=== PATIENT | male | born 1970 | race African-American/Black ===

== ENCOUNTER 2019-12-10 14:52 | Inpatient (IN) | payer MEDICAID ==
[~2019-12-10] VITALS: Ht 170.2 cm; Wt 83.5 kg
[2019-12-10 16:01] LABS: BASOPHILS % 0.7 % (0.0-2.0); EOSINOPHILS % 1.2 % (0.0-5.0); HEMATOCRIT. 28.3 % (42.0-52.0); HEMOGLOBIN. 9.3 g/dL (14.0-18.0); LYMPHOCYTES % 11.6 % (20.0-50.0); MEAN CORPUSCULAR HEMOGLOBIN 26.9 pg (28.0-32.0); MEAN CORPUSCULAR VOLUME 82.1 fL (80.0-94.0); MEAN PLATELET VOLUME 9.2 fl (7.4-10.4); MONOCYTES % 10.2 % (2.0-8.0); NEUTROPHILS % 76.3 % (40.0-76.0); PLATELET 496 x1000/uL (130-400); RED BLOOD CELL COUNT 3.44 mill/uL (4.7-6.1); RED CELL DISTRIBUTION WIDTH 14.7 % (11.6-14.6)
[2019-12-10 16:06] LABS: CHLORIDE 98 mEq/L (98-107)
[2019-12-10 17:56] LABS: INR 1.5; PROTHROMBIN TIME 15.3 sec (9.6-11.0)
[2019-12-10] MEDS ORDERED: PIPERACILLIN/TAZ 3.375G PREMIX 50 ML IV NR (19:00)
[2019-12-10] MEDS ORDERED: VANCOMYCIN 1 G PREMIX 200 ML IV NR (19:00)
[2019-12-10] MEDS ORDERED: DEXTROSE 50% WATER 50ML SYRINGE IV PRN (19:45)
[2019-12-10] MEDS ORDERED: ACETAMINOPHEN 325MG TABLET PO PRN (19:45)
[2019-12-10] MEDS ORDERED: ONDANSETRON HCL 4MG/2ML INJ IV PRN (19:45)
[2019-12-10 20:46] LABS: CLARITY URINE CLEAR (CLEAR); COLOR URINE YELLOW (YELLOW); KETONES URINE TRACE (NEGATIVE); LEUKOCYTE ESTERASE URINE NEGATIVE (NEGATIVE); NITRITE URINE NEGATIVE (NEGATIVE); OCCULT BLOOD URINE NEGATIVE (NEGATIVE); PROTEIN URINE TRACE (NEGATIVE); SPECIFIC GRAVITY URINE 1.015 (1.005-1.030); UROBILINOGEN URINE 0.2 E.U./dL (0.2-1.0)
[2019-12-10 20:58] LABS: *AMPHETAMINES SCREEN URINE NEGATIVE (NEGATIVE); *BARBITURATES SCREEN URINE NEGATIVE (NEGATIVE)
[2019-12-10 20:59] LABS: *BENZODIAZEPINES SCREEN URINE NEGATIVE (NEGATIVE); *COCAINE SCREEN URINE NEGATIVE (NEGATIVE); CANNABINOID URINE SCREEN NEGATIVE (NEGATIVE); METHADONE URINE SCREEN NEGATIVE (NEGATIVE); OPIATES URINE SCREEN PRESUMTIVE POSITIVE (NEGATIVE); PHENCYCLIDINE URINE SCREEN NEGATIVE (NEGATIVE)
[2019-12-10] MEDS: BLOOD SUGAR DIAGNOSTIC STRIP TEST SCH (21:00)
[2019-12-10] MEDS: INSULIN LISPRO 100 UNITS/ML SUBCUT SCH (21:00)
[2019-12-10 21:50] VITALS: BP 147/91
[2019-12-10 22:00] VITALS: BP 147/91
[2019-12-11] VITALS: BP 144/88
[2019-12-11] MEDS: PIPERACILLIN/TAZOBACTAM 3.375 G in DEXT 5% WATER 100 ML IV SCH ×3 (01:01→11:35)
[2019-12-11] MEDS ORDERED: VANCOMYCIN 1250MG in DEXTROSE 5% WATER 250ML IV SCH (03:00)
[2019-12-11 04:00] VITALS: BP 133/81
[2019-12-11] MEDS: INSULIN LISPRO 100 UNITS/ML SUBCUT SCH ×4 (07:40→21:00)
[2019-12-11] MEDS: BLOOD SUGAR DIAGNOSTIC STRIP TEST SCH ×4 (07:40→21:27)
[2019-12-11 08:00] VITALS: BP 129/79
[2019-12-11 12:00] VITALS: BP 143/88
[2019-12-11] MEDS: VANCOMYCIN 1 G PREMIX 200 ML IV SCH ×2 (15:43→22:13)
[2019-12-11 16:00] VITALS: BP 141/90
[2019-12-11] MEDS ORDERED: DEXT 5%/0.45% NACL 1000ML 1,000 ML IV ONE (18:30)
[2019-12-11 20:00] VITALS: BP 149/88
[2019-12-12] VITALS (9 sets, daily range): BP systolic 121–161; BP diastolic 58–95
[2019-12-12] MEDS: PIPERACILLIN/TAZOBACTAM 3.375 G in DEXT 5% WATER 100 ML IV SCH ×5 (00:01→23:36)
[2019-12-12 04:19] LABS: BASOPHILS % 0.8 % (0.0-2.0); EOSINOPHILS % 2.4 % (0.0-5.0); HEMATOCRIT. 23.3 % (42.0-52.0); HEMOGLOBIN. 7.7 g/dL (14.0-18.0); LYMPHOCYTES % 15.2 % (20.0-50.0); MEAN CORPUSCULAR HEMOGLOBIN 26.9 pg (28.0-32.0); MEAN CORPUSCULAR VOLUME 80.8 fL (80.0-94.0); MEAN PLATELET VOLUME 8.1 fl (7.4-10.4); MONOCYTES % 12.2 % (2.0-8.0); NEUTROPHILS % 69.4 % (40.0-76.0); PLATELET 411 x1000/uL (130-400); RED BLOOD CELL COUNT 2.88 mill/uL (4.7-6.1); RED CELL DISTRIBUTION WIDTH 14.5 % (11.6-14.6)
[2019-12-12 04:23] LABS: CHLORIDE 100 mEq/L (98-107)
[2019-12-12 04:50] LABS: VANCOMYCIN TROUGH 20.1 ug/mL (5.0-10.0)
[2019-12-12] MEDS: VANCOMYCIN 1 G PREMIX 200 ML IV SCH ×2 (06:34→18:00)
[2019-12-12] MEDS: BLOOD SUGAR DIAGNOSTIC STRIP TEST SCH ×4 (06:35→21:15)
[2019-12-12] MEDS: INSULIN LISPRO 100 UNITS/ML SUBCUT SCH ×4 (07:26→21:00)
[2019-12-12] MEDS ORDERED: POTASSIUM CHLORIDE INJ 40 MEQ in DEXT 5% WATER 250 ML IV NR (10:00)
[2019-12-12] MEDS ORDERED: CLONIDINE 0.1MG TABLET PO PRN (13:45)
[2019-12-12] MEDS ORDERED: BACITRACIN 50,000 UNITS/VIAL ONE ×2 (15:52→16:40)
[2019-12-12] MEDS ORDERED: HYDROMORPHONE HCL/PF 2MG/ML (OR) ONE (16:30)
[2019-12-12] MEDS ORDERED: VANCOMYCIN HCL 500 MG/VIAL ONE (17:25)
[2019-12-12] MEDS ORDERED: NALOXONE HCL 0.4 MG/ML 1ML VIAL ONE (17:54)
[2019-12-12 23:02] LABS: HEMATOCRIT 27.6 % (42.0-52.0); MEAN CORPUSCULAR HEMOGLOBIN 27.3 pg (28.0-32.0); MEAN CORPUSCULAR VOLUME 83.4 fL (80.0-94.0); PLATELET 403 x1000/uL (130-400); RED BLOOD CELL COUNT 3.31 mill/uL (4.7-6.1); RED CELL DISTRIBUTION WIDTH 14.8 % (11.6-14.6)
[2019-12-12] MEDS: MORPHINE SULFATE 2 MG/ML CPJ (NOT FOR IM USE) IV PRN (23:50)
[2019-12-13] VITALS (7 sets, daily range): BP systolic 139–149; BP diastolic 82–92
[2019-12-13] MEDS: HYDROCODONE/ACETAMINOPHEN 10/325MG TABLET PO PRN ×2 (02:35→08:58)
[2019-12-13] MEDS: PIPERACILLIN/TAZOBACTAM 3.375 G in DEXT 5% WATER 100 ML IV SCH ×4 (06:05→23:44)
[2019-12-13] MEDS: VANCOMYCIN 1 G PREMIX 200 ML IV SCH ×2 (06:10→17:45)
[2019-12-13] MEDS: MORPHINE SULFATE 2 MG/ML CPJ (NOT FOR IM USE) IV PRN ×2 (06:11→15:36)
[2019-12-13] MEDS: BLOOD SUGAR DIAGNOSTIC STRIP TEST SCH ×4 (06:19→20:22)
[2019-12-13 08:08] LABS: BASOPHILS % 0.8 % (0.0-2.0); EOSINOPHILS % 1.4 % (0.0-5.0); HEMOGLOBIN. 8.3 g/dL (14.0-18.0); LYMPHOCYTES % 11.3 % (20.0-50.0); MEAN CORPUSCULAR HEMOGLOBIN 27.8 pg (28.0-32.0); MEAN CORPUSCULAR VOLUME 83.5 fL (80.0-94.0); MEAN PLATELET VOLUME 8.4 fl (7.4-10.4); MONOCYTES % 10.2 % (2.0-8.0); NEUTROPHILS % 76.3 % (40.0-76.0); PLATELET 401 x1000/uL (130-400); RED BLOOD CELL COUNT 2.99 mill/uL (4.7-6.1); RED CELL DISTRIBUTION WIDTH 14.6 % (11.6-14.6)
[2019-12-13 08:26] LABS: CHLORIDE 100 mEq/L (98-107)
[2019-12-13] MEDS: INSULIN LISPRO 100 UNITS/ML SUBCUT SCH ×4 (08:59→20:31)
[2019-12-14] MEDS ORDERED: CLINDAMYCIN 900 MG IV SCH (03:00)
[2019-12-14 04:00] VITALS: BP 143/84
[2019-12-14] MEDS ORDERED: IBUP-2029 MT (05:46)
[2019-12-14] MEDS ORDERED: METR-167 PO (05:46)
[2019-12-14] MEDS ORDERED: DOXY100C2 MT (05:46)
[2019-12-14 06:16] LABS: BASOPHILS % 0.7 % (0.0-2.0); EOSINOPHILS % 2.1 % (0.0-5.0); HEMATOCRIT. 24.3 % (42.0-52.0); LYMPHOCYTES % 16.8 % (20.0-50.0); MEAN CORPUSCULAR HEMOGLOBIN 27.3 pg (28.0-32.0); MEAN CORPUSCULAR VOLUME 82.6 fL (80.0-94.0); MEAN PLATELET VOLUME 8.4 fl (7.4-10.4); MONOCYTES % 14.4 % (2.0-8.0); PLATELET 384 x1000/uL (130-400); RED BLOOD CELL COUNT 2.94 mill/uL (4.7-6.1); RED CELL DISTRIBUTION WIDTH 14.7 % (11.6-14.6)
[2019-12-14 06:24] LABS: CHLORIDE 100 mEq/L (98-107)
[2019-12-14 06:34] LABS: VANCOMYCIN TROUGH 9.2 ug/mL (5.0-10.0)
[2019-12-14] MEDS: PIPERACILLIN/TAZOBACTAM 3.375 G in DEXT 5% WATER 100 ML IV SCH ×3 (06:37→17:45)
[2019-12-14] MEDS: BLOOD SUGAR DIAGNOSTIC STRIP TEST SCH ×4 (07:15→21:43)
[2019-12-14] MEDS: INSULIN LISPRO 100 UNITS/ML SUBCUT SCH ×4 (07:15→21:00)
[2019-12-14] MEDS: VANCOMYCIN 1 G PREMIX 200 ML IV SCH (07:26)
[2019-12-14 08:00] VITALS: BP 140/82
[2019-12-14] MEDS: MORPHINE SULFATE 2 MG/ML CPJ (NOT FOR IM USE) IV PRN (09:34)
[2019-12-14] MEDS ORDERED: MORPHINE SULFATE 2 MG/ML CPJ (NOT FOR IM USE) IV SCH (10:15)
[2019-12-14 12:00] VITALS: BP 141/88
[2019-12-14] MEDS ORDERED: BUPIVACAINE HCL/PF 0.25% (2.5MG/ML) 10ML INFIL NR (12:00)
[2019-12-14] MEDS ORDERED: LIDOCAINE HCL 1% 20ML VIAL (Pyxis) INJ INFIL NR (12:00)
[2019-12-14] MEDS: HYDROMORPHONE HCL/PF 2MG/ML CPJ IV PRN (13:03)
[2019-12-14] MEDS ORDERED: MORPHINE SULFATE 4 MG/ML CPJ (NOT FOR IM USE) IV PRN (15:00)
[2019-12-14] MEDS: CLINDAMYCIN 900 MG in DEXTROSE 5% WATER 50 ML IV SCH ×2 (15:37→21:49)
[2019-12-14 16:00] VITALS: BP 118/82
[2019-12-14] MEDS: VANCOMYCIN 1500MG in DEXTROSE 5% WATER 250ML IV SCH (18:42)
[2019-12-14 19:00] VITALS: BP 132/82
[2019-12-15] VITALS: BP 144/69
[2019-12-15] MEDS: PIPERACILLIN/TAZOBACTAM 3.375 G in DEXT 5% WATER 100 ML IV SCH ×5 (00:13→23:35)
[2019-12-15 04:00] VITALS: BP 144/76
[2019-12-15] MEDS: VANCOMYCIN 1500MG in DEXTROSE 5% WATER 250ML IV SCH ×3 (06:00→18:25)
[2019-12-15] MEDS: CLINDAMYCIN 900 MG in DEXTROSE 5% WATER 50 ML IV SCH ×3 (06:41→21:49)
[2019-12-15 07:06] LABS: BASOPHILS % 0.9 % (0.0-2.0); HEMATOCRIT. 25.8 % (42.0-52.0); HEMOGLOBIN. 8.6 g/dL (14.0-18.0); LYMPHOCYTES % 17.7 % (20.0-50.0); MEAN CORPUSCULAR HEMOGLOBIN 27.5 pg (28.0-32.0); MEAN CORPUSCULAR VOLUME 82.8 fL (80.0-94.0); MEAN PLATELET VOLUME 8.1 fl (7.4-10.4); MONOCYTES % 13.4 % (2.0-8.0); PLATELET 443 x1000/uL (130-400); RED BLOOD CELL COUNT 3.12 mill/uL (4.7-6.1)
[2019-12-15] MEDS: BLOOD SUGAR DIAGNOSTIC STRIP TEST SCH ×4 (07:20→21:17)
[2019-12-15 07:38] LABS: CHLORIDE 101 mEq/L (98-107)
[2019-12-15] MEDS: INSULIN LISPRO 100 UNITS/ML SUBCUT SCH ×4 (07:50→21:00)
[2019-12-15 08:00] VITALS: BP 141/91
[2019-12-15] MEDS: HYDROMORPHONE HCL/PF 2MG/ML CPJ IV PRN (10:39)
[2019-12-15 12:00] VITALS: BP 125/82
[2019-12-15 16:00] VITALS: BP 124/74
[2019-12-15 20:00] VITALS: BP 125/70
[2019-12-16] VITALS (8 sets, daily range): BP systolic 119–149; BP diastolic 65–90
[2019-12-16 06:15] LABS: EOSINOPHILS % 3.6 % (0.0-5.0); HEMATOCRIT. 28.4 % (42.0-52.0); HEMOGLOBIN. 9.2 g/dL (14.0-18.0); LYMPHOCYTES % 19.4 % (20.0-50.0); MEAN CORPUSCULAR HEMOGLOBIN 27.1 pg (28.0-32.0); MEAN CORPUSCULAR VOLUME 83.3 fL (80.0-94.0); MEAN PLATELET VOLUME 8.3 fl (7.4-10.4); MONOCYTES % 14.9 % (2.0-8.0); NEUTROPHILS % 61.1 % (40.0-76.0); PLATELET 451 x1000/uL (130-400); RED BLOOD CELL COUNT 3.42 mill/uL (4.7-6.1); RED CELL DISTRIBUTION WIDTH 15.1 % (11.6-14.6)
[2019-12-16] MEDS: CLINDAMYCIN 900 MG in DEXTROSE 5% WATER 50 ML IV SCH ×3 (06:38→22:33)
[2019-12-16 06:46] LABS: CHLORIDE 102 mEq/L (98-107); VANCOMYCIN TROUGH 25.4 ug/mL (5.0-10.0)
[2019-12-16] MEDS: BLOOD SUGAR DIAGNOSTIC STRIP TEST SCH ×3 (07:45→21:00)
[2019-12-16] MEDS: PIPERACILLIN/TAZOBACTAM 3.375 G in DEXT 5% WATER 100 ML IV SCH ×3 (07:45→20:13)
[2019-12-16] MEDS: INSULIN LISPRO 100 UNITS/ML SUBCUT SCH ×3 (07:50→20:37)
[2019-12-16] MEDS: VANCOMYCIN 1500MG in DEXTROSE 5% WATER 250ML IV SCH (08:42)
[2019-12-16] MEDS: VANCOMYCIN 1250MG in DEXTROSE 5% WATER 250ML IV SCH (22:09)
[2019-12-17] VITALS: BP 131/79
[2019-12-17] MEDS: PIPERACILLIN/TAZOBACTAM 3.375 G in DEXT 5% WATER 100 ML IV SCH ×4 (00:23→18:42)
[2019-12-17 04:00] VITALS: BP 132/85
[2019-12-17] MEDS: CLINDAMYCIN 900 MG in DEXTROSE 5% WATER 50 ML IV SCH (06:04)
[2019-12-17 06:32] LABS: HEMATOCRIT. 28.3 % (42.0-52.0); HEMOGLOBIN. 9.3 g/dL (14.0-18.0); MEAN CORPUSCULAR HEMOGLOBIN 27.4 pg (28.0-32.0); MEAN CORPUSCULAR VOLUME 83.2 fL (80.0-94.0); MEAN PLATELET VOLUME 8.1 fl (7.4-10.4); PLATELET 476 x1000/uL (130-400); RED CELL DISTRIBUTION WIDTH 15.4 % (11.6-14.6)
[2019-12-17 06:50] LABS: CHLORIDE 107 mEq/L (98-107)
[2019-12-17] MEDS: BLOOD SUGAR DIAGNOSTIC STRIP TEST SCH ×4 (06:54→21:38)
[2019-12-17] MEDS: INSULIN LISPRO 100 UNITS/ML SUBCUT SCH ×4 (07:42→21:00)
[2019-12-17 08:33] VITALS: BP 137/88
[2019-12-17] MEDS: VANCOMYCIN 1250MG in DEXTROSE 5% WATER 250ML IV SCH (09:45)
[2019-12-17 12:00] VITALS: BP 149/69
[2019-12-17 14:41] LABS: PLATELET ESTIMATE INCREASED
[2019-12-17 20:00] VITALS: BP 130/78
[2019-12-17] MEDS: CLINDAMYCIN 900 MG PREMIX 50 ML IV SCH (21:14)
[2019-12-18] VITALS: BP 138/91
[2019-12-18 04:00] VITALS: BP 138/87
[2019-12-18] MEDS: PIPERACILLIN/TAZOBACTAM 3.375 G in DEXT 5% WATER 100 ML IV SCH ×5 (05:25→17:35)
[2019-12-18] MEDS ORDERED: VANCOMYCIN 750 MG PREMIX 150 ML IV SCH (06:00)
[2019-12-18] MEDS: CLINDAMYCIN 900 MG PREMIX 50 ML IV SCH ×3 (06:33→22:49)
[2019-12-18] MEDS: BLOOD SUGAR DIAGNOSTIC STRIP TEST SCH ×4 (06:38→21:00)
[2019-12-18 06:39] LABS: BASOPHILS % 0.9 % (0.0-2.0); EOSINOPHILS % 4.9 % (0.0-5.0); HEMATOCRIT. 28.7 % (42.0-52.0); HEMOGLOBIN. 9.4 g/dL (14.0-18.0); LYMPHOCYTES % 19.5 % (20.0-50.0); MEAN CORPUSCULAR HEMOGLOBIN 27.3 pg (28.0-32.0); MEAN CORPUSCULAR VOLUME 83.8 fL (80.0-94.0); MEAN PLATELET VOLUME 8.1 fl (7.4-10.4); MONOCYTES % 14.2 % (2.0-8.0); NEUTROPHILS % 60.5 % (40.0-76.0); PLATELET 527 x1000/uL (130-400); RED BLOOD CELL COUNT 3.43 mill/uL (4.7-6.1); RED CELL DISTRIBUTION WIDTH 15.3 % (11.6-14.6)
[2019-12-18 07:23] LABS: CHLORIDE 107 mEq/L (98-107)
[2019-12-18] MEDS: INSULIN LISPRO 100 UNITS/ML SUBCUT SCH ×4 (07:50→21:00)
[2019-12-18 08:00] VITALS: BP 139/88
[2019-12-18] MEDS: HYDROMORPHONE HCL/PF 2MG/ML CPJ IV PRN (11:40)
[2019-12-18 12:00] VITALS: BP 158/97
[2019-12-18 16:00] VITALS: BP 140/96
[2019-12-18 20:00] VITALS: BP 142/89
[2019-12-18] MEDS ORDERED: AMOX1TAB16 MT (23:38)
[2019-12-18] MEDS ORDERED: DOXY100C2 MT (23:38)
[2019-12-19] VITALS: BP 138/89
[2019-12-19] MEDS: PIPERACILLIN/TAZOBACTAM 3.375 G in DEXT 5% WATER 100 ML IV SCH ×4 (03:40→17:47)
[2019-12-19 04:00] VITALS: BP 127/69
[2019-12-19] MEDS: CLINDAMYCIN 900 MG PREMIX 50 ML IV SCH ×2 (05:43→13:48)
[2019-12-19] MEDS: VANCOMYCIN 1 G PREMIX 200 ML IV SCH (05:43)
[2019-12-19 05:52] LABS: CHLORIDE 105 mEq/L (98-107)
[2019-12-19 06:13] LABS: BASOPHILS % 0.8 % (0.0-2.0); EOSINOPHILS % 5.3 % (0.0-5.0); HEMATOCRIT. 30.2 % (42.0-52.0); HEMOGLOBIN. 9.9 g/dL (14.0-18.0); LYMPHOCYTES % 18.5 % (20.0-50.0); MEAN CORPUSCULAR HEMOGLOBIN 27.2 pg (28.0-32.0); MEAN CORPUSCULAR VOLUME 83.3 fL (80.0-94.0); MEAN PLATELET VOLUME 8.1 fl (7.4-10.4); MONOCYTES % 13.4 % (2.0-8.0); PLATELET 544 x1000/uL (130-400); RED BLOOD CELL COUNT 3.63 mill/uL (4.7-6.1); RED CELL DISTRIBUTION WIDTH 15.7 % (11.6-14.6)
[2019-12-19] MEDS: INSULIN LISPRO 100 UNITS/ML SUBCUT SCH ×4 (06:35→21:00)
[2019-12-19] MEDS: BLOOD SUGAR DIAGNOSTIC STRIP TEST SCH ×4 (06:35→21:00)
[2019-12-19 08:00] VITALS: BP 141/88
[2019-12-19 12:00] VITALS: BP 151/93
[2019-12-19 16:00] VITALS: BP 140/89
[2019-12-19 20:00] VITALS: BP 126/72
[2019-12-20] VITALS: BP 131/76
[2019-12-20] MEDS: PIPERACILLIN/TAZOBACTAM 3.375 G in DEXT 5% WATER 100 ML IV SCH ×2 (00:56→06:10)
[2019-12-20] MEDS: VANCOMYCIN 1 G PREMIX 200 ML IV SCH (00:56)
[2019-12-20 04:00] VITALS: BP 124/78
[2019-12-20] MEDS: INSULIN LISPRO 100 UNITS/ML SUBCUT SCH ×4 (06:32→21:00)
[2019-12-20] MEDS: BLOOD SUGAR DIAGNOSTIC STRIP TEST SCH ×4 (06:32→21:05)
[2019-12-20 07:08] LABS: CHLORIDE 103 mEq/L (98-107)
[2019-12-20 08:00] VITALS: BP 137/96
[2019-12-20] MEDS: AMOXICILLIN/POTASSIUM CLAVULANATE 875/125MG TAB PO SCH ×2 (10:39→21:05)
[2019-12-20] MEDS: DOXYCYCLINE HYCLATE 100MG CAPSULE PO SCH ×2 (10:39→21:05)
[2019-12-20] MEDS ORDERED: POTASSIUM CHLORIDE 20MEQ/PACKET PO SCH (10:45)
[2019-12-20 12:00] VITALS: BP 157/94
[2019-12-20 16:02] VITALS: BP 157/97
[2019-12-21] MEDS: BLOOD SUGAR DIAGNOSTIC STRIP TEST SCH ×4 (07:20→21:00)
[2019-12-21] MEDS: INSULIN LISPRO 100 UNITS/ML SUBCUT SCH ×4 (07:20→21:00)
[2019-12-21 07:27] LABS: BASOPHILS % 1.1 % (0.0-2.0); EOSINOPHILS % 4.2 % (0.0-5.0); HEMATOCRIT. 30.6 % (42.0-52.0); LYMPHOCYTES % 20.2 % (20.0-50.0); MEAN CORPUSCULAR HEMOGLOBIN 27.1 pg (28.0-32.0); MEAN CORPUSCULAR VOLUME 82.9 fL (80.0-94.0); MEAN PLATELET VOLUME 8.1 fl (7.4-10.4); MONOCYTES % 12.7 % (2.0-8.0); NEUTROPHILS % 61.8 % (40.0-76.0); PLATELET 544 x1000/uL (130-400); RED BLOOD CELL COUNT 3.69 mill/uL (4.7-6.1); RED CELL DISTRIBUTION WIDTH 16.1 % (11.6-14.6)
[2019-12-21 07:46] LABS: CHLORIDE 107 mEq/L (98-107)
[2019-12-21 08:00] VITALS: BP 144/92
[2019-12-21] MEDS: AMOXICILLIN/POTASSIUM CLAVULANATE 875/125MG TAB PO SCH ×2 (09:29→23:06)
[2019-12-21] MEDS: DOXYCYCLINE HYCLATE 100MG CAPSULE PO SCH ×2 (09:29→23:06)
[2019-12-21 12:00] VITALS: BP 121/70
[2019-12-21 16:00] VITALS: BP 141/90
[2019-12-21 20:00] VITALS: BP 120/82
[2019-12-22] VITALS: BP 126/77
[2019-12-22 04:00] VITALS: BP 118/82
[2019-12-22] MEDS: BLOOD SUGAR DIAGNOSTIC STRIP TEST SCH ×4 (07:20→20:58)
[2019-12-22] MEDS: INSULIN LISPRO 100 UNITS/ML SUBCUT SCH ×4 (07:50→20:58)
[2019-12-22 08:00] VITALS: BP 116/72
[2019-12-22] MEDS: AMOXICILLIN/POTASSIUM CLAVULANATE 875/125MG TAB PO SCH ×2 (10:12→21:13)
[2019-12-22] MEDS: DOXYCYCLINE HYCLATE 100MG CAPSULE PO SCH ×2 (10:12→21:13)
[2019-12-22] MEDS ORDERED: HYDROMORPHONE HCL/PF 2MG/ML CPJ IV SCH (10:30)
[2019-12-22 12:00] VITALS: BP 93/59
[2019-12-22] MEDS ORDERED: METF-414 PO (15:43)
[2019-12-22 16:00] VITALS: BP 128/83
[2019-12-22 20:00] VITALS: BP 135/87
[2019-12-23] VITALS: BP 121/78
[2019-12-23 04:00] VITALS: BP 125/87
[2019-12-23] MEDS: BLOOD SUGAR DIAGNOSTIC STRIP TEST SCH ×4 (06:22→21:26)
[2019-12-23] MEDS: INSULIN LISPRO 100 UNITS/ML SUBCUT SCH ×4 (07:50→21:00)
[2019-12-23 08:00] VITALS: BP 123/77
[2019-12-23] MEDS: DOXYCYCLINE HYCLATE 100MG CAPSULE PO SCH ×2 (10:32→21:26)
[2019-12-23] MEDS: AMOXICILLIN/POTASSIUM CLAVULANATE 875/125MG TAB PO SCH ×2 (10:32→21:26)
[2019-12-23 12:00] VITALS: BP 118/79
[2019-12-23 16:00] VITALS: BP 135/83
[2019-12-23 20:00] VITALS: BP 130/84
[2019-12-24] VITALS: BP 125/80
[2019-12-24 04:00] VITALS: BP 140/87
[2019-12-24] MEDS: BLOOD SUGAR DIAGNOSTIC STRIP TEST SCH ×4 (07:31→21:00)
[2019-12-24] MEDS: INSULIN LISPRO 100 UNITS/ML SUBCUT SCH ×4 (07:50→21:00)
[2019-12-24] MEDS: AMOXICILLIN/POTASSIUM CLAVULANATE 875/125MG TAB PO SCH ×2 (09:55→22:48)
[2019-12-24] MEDS: DOXYCYCLINE HYCLATE 100MG CAPSULE PO SCH ×2 (09:55→22:49)
[2019-12-24] MEDS: ZINC SULFATE 220 MG ( 50 ) CAPSULE PO SCH (09:55)
[2019-12-24] MEDS: ASCORBIC ACID 500 MG TABLET PO SCH (09:56)
[2019-12-24 10:23] VITALS: BP 140/93
[2019-12-24 12:00] VITALS: BP 138/92
[2019-12-24 16:00] VITALS: BP 135/84
[2019-12-24 20:00] VITALS: BP 109/69
[2019-12-25] VITALS: BP 119/82
[2019-12-25 04:00] VITALS: BP 120/85
[2019-12-25] MEDS: BLOOD SUGAR DIAGNOSTIC STRIP TEST SCH ×4 (06:50→21:46)
[2019-12-25] MEDS: INSULIN LISPRO 100 UNITS/ML SUBCUT SCH ×4 (07:50→21:00)
[2019-12-25 08:00] VITALS: BP 133/85
[2019-12-25] MEDS: DOXYCYCLINE HYCLATE 100MG CAPSULE PO SCH (09:30)
[2019-12-25] MEDS: ASCORBIC ACID 500 MG TABLET PO SCH (09:30)
[2019-12-25] MEDS: ZINC SULFATE 220 MG ( 50 ) CAPSULE PO SCH (09:30)
[2019-12-25] MEDS: AMOXICILLIN/POTASSIUM CLAVULANATE 875/125MG TAB PO SCH (09:30)
[2019-12-25 12:00] VITALS: BP 147/93
[2019-12-25] MEDS ORDERED: HYDROMORPHONE HCL/PF 2MG/ML CPJ IV ONE (12:45)
[2019-12-25 16:00] VITALS: BP 106/72
[2019-12-25 20:00] VITALS: BP 127/82
[2019-12-26] VITALS: BP 118/77
[2019-12-26 04:00] VITALS: BP 116/76
[2019-12-26] MEDS: BLOOD SUGAR DIAGNOSTIC STRIP TEST SCH ×4 (07:30→21:00)
[2019-12-26] MEDS: INSULIN LISPRO 100 UNITS/ML SUBCUT SCH ×4 (07:50→21:00)
[2019-12-26 08:00] VITALS: BP 132/84
[2019-12-26] MEDS: ZINC SULFATE 220 MG ( 50 ) CAPSULE PO SCH (09:34)
[2019-12-26] MEDS: ASCORBIC ACID 500 MG TABLET PO SCH (09:34)
[2019-12-26 12:00] VITALS: BP 136/90
[2019-12-26 16:00] VITALS: BP 120/83
[2019-12-26 20:00] VITALS: BP 136/89
[2019-12-27] VITALS: BP 98/64
[2019-12-27 04:00] VITALS: BP 105/73
[2019-12-27] MEDS: BLOOD SUGAR DIAGNOSTIC STRIP TEST SCH ×4 (07:20→21:38)
[2019-12-27] MEDS: INSULIN LISPRO 100 UNITS/ML SUBCUT SCH ×4 (07:50→21:00)
[2019-12-27 08:00] VITALS: BP 122/87
[2019-12-27] MEDS: ZINC SULFATE 220 MG ( 50 ) CAPSULE PO SCH (08:38)
[2019-12-27] MEDS: ASCORBIC ACID 500 MG TABLET PO SCH (08:38)
[2019-12-27 12:00] VITALS: BP 128/84
[2019-12-27 16:00] VITALS: BP 130/85
[2019-12-27 20:00] VITALS: BP 114/62
[2019-12-28] VITALS: BP 127/85
[2019-12-28 04:00] VITALS: BP 105/76
[2019-12-28] MEDS: BLOOD SUGAR DIAGNOSTIC STRIP TEST SCH ×4 (07:20→21:23)
[2019-12-28] MEDS: INSULIN LISPRO 100 UNITS/ML SUBCUT SCH ×4 (07:50→21:00)
[2019-12-28 08:00] VITALS: BP 121/74
[2019-12-28] MEDS: ASCORBIC ACID 500 MG TABLET PO SCH (09:04)
[2019-12-28] MEDS: ZINC SULFATE 220 MG ( 50 ) CAPSULE PO SCH (09:04)
[2019-12-28 12:00] VITALS: BP 141/91
[2019-12-28 16:00] VITALS: BP 92/69
[2019-12-28 20:00] VITALS: BP 122/85
[2019-12-29] VITALS: BP 128/88
[2019-12-29 04:00] VITALS: BP 119/54
[2019-12-29] MEDS: BLOOD SUGAR DIAGNOSTIC STRIP TEST SCH ×4 (07:31→21:23)
[2019-12-29] MEDS: INSULIN LISPRO 100 UNITS/ML SUBCUT SCH ×4 (07:45→21:00)
[2019-12-29 08:00] VITALS: BP 121/82
[2019-12-29] MEDS: ASCORBIC ACID 500 MG TABLET PO SCH (09:17)
[2019-12-29] MEDS: ZINC SULFATE 220 MG ( 50 ) CAPSULE PO SCH (09:17)
[2019-12-29] MEDS: HYDROMORPHONE HCL/PF 2MG/ML CPJ IV PRN (11:05)
[2019-12-29 12:00] VITALS: BP 108/13
[2019-12-29 16:00] VITALS: BP 124/86
[2019-12-29 20:00] VITALS: BP 114/83
[2019-12-30] VITALS: BP 120/85
[2019-12-30 04:00] VITALS: BP 130/82
[2019-12-30] MEDS: BLOOD SUGAR DIAGNOSTIC STRIP TEST SCH ×2 (06:41→20:45)
[2019-12-30] MEDS: INSULIN LISPRO 100 UNITS/ML SUBCUT SCH ×2 (07:50→20:45)
[2019-12-30 08:00] VITALS: BP 112/62
[2019-12-30] MEDS: ASCORBIC ACID 500 MG TABLET PO SCH (08:54)
[2019-12-30] MEDS: ZINC SULFATE 220 MG ( 50 ) CAPSULE PO SCH (08:54)
[2019-12-30 12:00] VITALS: BP 113/83
[2019-12-30 16:00] VITALS: BP 129/86
[2019-12-30 16:20] LABS: BASOPHILS % 0.7 % (0.0-2.0); EOSINOPHILS % 6.6 % (0.0-5.0); HEMATOCRIT. 32.3 % (42.0-52.0); HEMOGLOBIN. 10.7 g/dL (14.0-18.0); LYMPHOCYTES % 29.2 % (20.0-50.0); MEAN CORPUSCULAR HEMOGLOBIN 27.2 pg (28.0-32.0); MEAN CORPUSCULAR VOLUME 82.2 fL (80.0-94.0); MEAN PLATELET VOLUME 8.7 fl (7.4-10.4); MONOCYTES % 11.7 % (2.0-8.0); NEUTROPHILS % 51.8 % (40.0-76.0); PLATELET 451 x1000/uL (130-400); RED BLOOD CELL COUNT 3.93 mill/uL (4.7-6.1); RED CELL DISTRIBUTION WIDTH 16.5 % (11.6-14.6)
[2019-12-30 16:32] LABS: CHLORIDE 103 mEq/L (98-107)
[2019-12-30 20:00] VITALS: BP 106/71
[2019-12-31] VITALS: BP 103/72
[2019-12-31 04:00] VITALS: BP 121/77
[2019-12-31] MEDS: BLOOD SUGAR DIAGNOSTIC STRIP TEST SCH ×4 (07:20→21:15)
[2019-12-31 07:48] VITALS: BP 97/50
[2019-12-31] MEDS: INSULIN LISPRO 100 UNITS/ML SUBCUT SCH ×4 (07:50→21:00)
[2019-12-31] MEDS: ASCORBIC ACID 500 MG TABLET PO SCH (08:28)
[2019-12-31] MEDS: ZINC SULFATE 220 MG ( 50 ) CAPSULE PO SCH (08:28)
[2019-12-31 11:55] VITALS: BP 132/86
[2019-12-31 16:01] VITALS: BP 106/76
[2019-12-31 20:00] VITALS: BP 127/82
[2020-01-01] VITALS: BP 122/85
[2020-01-01 04:00] VITALS: BP 116/78
[2020-01-01] MEDS: BLOOD SUGAR DIAGNOSTIC STRIP TEST SCH ×4 (06:39→21:00)
[2020-01-01] MEDS: INSULIN LISPRO 100 UNITS/ML SUBCUT SCH ×4 (06:41→21:00)
[2020-01-01 08:00] VITALS: BP 126/83
[2020-01-01] MEDS: ASCORBIC ACID 500 MG TABLET PO SCH (08:48)
[2020-01-01] MEDS: ZINC SULFATE 220 MG ( 50 ) CAPSULE PO SCH (08:48)
[2020-01-01 12:00] VITALS: BP 133/86
[2020-01-01] MEDS: HYDROMORPHONE HCL/PF 2MG/ML CPJ IV PRN (12:13)
[2020-01-01 20:00] VITALS: BP 98/63
[2020-01-02] VITALS: BP 121/78
[2020-01-02 04:00] VITALS: BP 111/73
[2020-01-02] MEDS: BLOOD SUGAR DIAGNOSTIC STRIP TEST SCH ×4 (06:20→21:26)
[2020-01-02] MEDS: INSULIN LISPRO 100 UNITS/ML SUBCUT SCH ×4 (06:24→21:00)
[2020-01-02 08:00] VITALS: BP 119/87
[2020-01-02] MEDS: ASCORBIC ACID 500 MG TABLET PO SCH (09:20)
[2020-01-02] MEDS: ZINC SULFATE 220 MG ( 50 ) CAPSULE PO SCH (09:20)
[2020-01-02 12:00] VITALS: BP 130/86
[2020-01-02 16:00] VITALS: BP 118/88
[2020-01-02 20:00] VITALS: BP 115/72
[2020-01-03] VITALS: BP 118/75
[2020-01-03 04:00] VITALS: BP 91/58
[2020-01-03] MEDS: BLOOD SUGAR DIAGNOSTIC STRIP TEST SCH ×4 (07:07→21:02)
[2020-01-03] MEDS: INSULIN LISPRO 100 UNITS/ML SUBCUT SCH ×4 (07:33→21:00)
[2020-01-03 08:00] VITALS: BP 110/78
[2020-01-03] MEDS: ASCORBIC ACID 500 MG TABLET PO SCH (09:07)
[2020-01-03] MEDS: ZINC SULFATE 220 MG ( 50 ) CAPSULE PO SCH (09:07)
[2020-01-03 12:00] VITALS: BP 120/80
[2020-01-03 20:00] VITALS: BP 112/81
[2020-01-04] VITALS: BP 119/75
[2020-01-04 04:00] VITALS: BP 107/79
[2020-01-04] MEDS: BLOOD SUGAR DIAGNOSTIC STRIP TEST SCH ×4 (07:45→21:35)
[2020-01-04] MEDS: INSULIN LISPRO 100 UNITS/ML SUBCUT SCH ×4 (07:50→21:00)
[2020-01-04 08:00] VITALS: BP 112/24
[2020-01-04] MEDS: ASCORBIC ACID 500 MG TABLET PO SCH (09:21)
[2020-01-04] MEDS: ZINC SULFATE 220 MG ( 50 ) CAPSULE PO SCH (09:21)
[2020-01-04 12:00] VITALS: BP 121/84
[2020-01-04 16:00] VITALS: BP 122/82
[2020-01-04 20:00] VITALS: BP 132/91
[2020-01-05] VITALS: BP 111/77
[2020-01-05 04:00] VITALS: BP 122/81
[2020-01-05] MEDS: BLOOD SUGAR DIAGNOSTIC STRIP TEST SCH ×4 (06:35→21:00)
[2020-01-05] MEDS: INSULIN LISPRO 100 UNITS/ML SUBCUT SCH ×4 (07:40→21:00)
[2020-01-05 08:00] VITALS: BP 100/70
[2020-01-05] MEDS: ASCORBIC ACID 500 MG TABLET PO SCH (09:16)
[2020-01-05] MEDS: ZINC SULFATE 220 MG ( 50 ) CAPSULE PO SCH (09:16)
[2020-01-05] MEDS ORDERED: HYDROMORPHONE HCL/PF 2MG/ML CPJ IV PRN (10:30)
[2020-01-05 12:00] VITALS: BP 136/89
[2020-01-05 16:00] VITALS: BP 104/74
[2020-01-05 20:00] VITALS: BP 106/76
[2020-01-06] VITALS: BP 117/82
[2020-01-06 04:00] VITALS: BP 107/73
[2020-01-06] MEDS: BLOOD SUGAR DIAGNOSTIC STRIP TEST SCH ×4 (06:23→20:20)
[2020-01-06] MEDS: INSULIN LISPRO 100 UNITS/ML SUBCUT SCH ×4 (07:50→20:20)
[2020-01-06 08:00] VITALS: BP 117/84
[2020-01-06] MEDS: ZINC SULFATE 220 MG ( 50 ) CAPSULE PO SCH (09:01)
[2020-01-06] MEDS: ASCORBIC ACID 500 MG TABLET PO SCH (09:01)
[2020-01-06 12:00] VITALS: BP 128/90
[2020-01-06 16:00] VITALS: BP 128/92
[2020-01-06] MEDS ORDERED: HYDR-4001 MT (16:27)
[2020-01-06 20:00] VITALS: BP 121/82
[2020-01-07 04:00] VITALS: BP 110/77
[2020-01-07] MEDS: BLOOD SUGAR DIAGNOSTIC STRIP TEST SCH ×2 (07:41→12:52)
[2020-01-07] MEDS: INSULIN LISPRO 100 UNITS/ML SUBCUT SCH ×2 (07:50→12:50)
[2020-01-07 08:00] VITALS: BP 108/71
[2020-01-07] MEDS: ASCORBIC ACID 500 MG TABLET PO SCH (08:58)
[2020-01-07] MEDS: ZINC SULFATE 220 MG ( 50 ) CAPSULE PO SCH (08:59)
[2020-01-07 12:00] VITALS: BP 125/89
[2020-01-07 12:23] VITALS: BP 125/89
[2020-01-07] MEDS ORDERED: HYDROCODONE/ACETAMINOPHEN 5/325MG TABLET PO NR (16:00)
[2020-01-07 16:02] VITALS: BP 125/89
== END 2020-01-07 16:55 | disposition home health service (06) | DRG 710 ==
LOC: ER 14:52 → 6WST 17:27 → EDBEDREQ 17:30 → EDBEDREQTM 17:30 → ENRESERV 20:21 → 6EST 12-17 14:48
PROVIDERS: ADMIT Internal Medicine; ATTEND Internal Medicine
PROC: 0Y6H0Z1 Detachment at Right Lower Leg, High, Open Approach (ICD-10-PCS; principal; 2019-12-12)
PROC: 30233N1 Transfusion of Nonautologous Red Blood Cells into Peripheral Vein, Percutaneous Approach (ICD-10-PCS; 2019-12-12)
DX: A41.9 Sepsis, unspecified organism (principal); E11.52 Type 2 diabetes mellitus with diabetic peripheral angiopathy with gangrene; E11.621 Type 2 diabetes mellitus with foot ulcer; L97.519 Non-pressure chronic ulcer of other part of right foot with unspecified severity; E66.9 Obesity, unspecified; D64.9 Anemia, unspecified; E87.1 Hypo-osmolality and hyponatremia; E43 Unspecified severe protein-calorie malnutrition; M72.6 Necrotizing fasciitis; L03.115 Cellulitis of right lower limb; I96 Gangrene, not elsewhere classified; I10 Essential (primary) hypertension; Z20.828 Contact with and (suspected) exposure to other viral communicable diseases; Z91.14 Patient's other noncompliance with medication regimen; Z91.19 Patient's noncompliance with other medical treatment and regimen; Z68.28 Body mass index [BMI] 28.0-28.9, adult; Z71.3 Dietary counseling and surveillance
CPT/HCPCS: 36415; 71045; 73630; 73700; 73718; 80048; 80053; 80202; 80305; 81003; 82962; 83036; 83605; 84145; 84484; 85025; 85027; 85651; 86141; 86850; 86900; 86920; 87070; 87075; 87426; 88309; 88311; 93005; 93922; 97110; 97116; 97162; 97166; 97530; 97535; 99285; A6261; J1170; J1815; J2270; J2310; J2543; J3370; J3480; J3490; J7040; J7060; L1830; P9016; A4315